=== PATIENT | female | born 2000 | race Caucasian/White ===

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

== ENCOUNTER → 2023-07-07 | Outpatient (CLI) | payer OTHER, SELFPAY | END | disposition home or self-care (01) | LOC: LABSPEC 12:10 | PROVIDERS: PCP Pediatrics; Referring Provider Physician Assistant Surgical; Visit Provider Physician Assistant Surgical | DX: J02.9 Acute pharyngitis, unspecified (principal) | CPT/HCPCS: 87070 ==

== ENCOUNTER → 2023-08-19 | Outpatient (CLI) | payer OTHER, SELFPAY ==
[2023-08-19 15:07] LABS: Hematocrit 43.3 % (37-47); Hemoglobin 13.5 g/dL (12.0-15.0); Mean Corp Hgb Conc 31.2 g/dL (32-36); Mean Corpuscular Volume 89.8 fL (81-99); Mean Platelet Vol. 10.1 fl (6.2-12.0); Platelet Count 342 K/mm3 (150-450); RBC Distribution Width CV 13.9 % (11.6-14.6); RBC Distribution Width SD 45.8 fl (35.1-43.9); Red Blood Count 4.82 M/mm3 (4.2-5.4); White Blood Count 12.9 K/mm3 (4.4-11.0)
[2023-08-19 17:02] LABS: ALB/GLOB Ratio 0.7 RATIO (0.9-2.4); AST(SGOT) 23 U/L (15-37); Alanine Aminotransfer ALT/SGPT 35 U/L (13-56); Albumin, Serum 3.1 g/dL (3.2-5.0); Alkaline Phosphatase 109 U/L (45-117); Anion Gap 8 (5-15); BUN 9 mg/dL (7-18); BUN/Creat Ratio 13.3 RATIO (10-20); Calcium,Total 9.2 mg/dL (8.5-10.1); Chloride 102 mmol/L (98-107); Cholesterol 123 mg/dL (200); Creatinine, Serum 0.68 mg/dL (0.55-1.02); EST Glomerular Filtration Rate 116 mL/min (>60); Est Glom Filt Rate - Afr Amer 140 mL/min (>60); Ferritin 54 ng/mL (8-252); Globulin 4.6 g/dL (2.2-4.2); Glucose 76 mg/dL (74-106); High Density Lipoprotein 49 mg/dL; Iron 83 ug/dL (50-170); Iron Binding Capacity,Total 391 ug/dL (250-450); PERCENT IRON SATURATION 21.2 % (15.0-55.0); Potassium 3.9 mmol/L (3.5-5.1); Protein, Total 7.7 g/dL (6.4-8.2); Sodium Level 136 mmol/L (136-145); Thyroid Stim Hormone (TSH) 1.85 uIU/mL (0.358-3.74); Triglycerides 53 mg/dL; Very Low Density Lipoprotein 11 mg/dL (5-40)
[2023-08-19 17:32] LABS: Insulin 10.4 mU/L (2.6-37.6); Vitamin B12 542 pg/mL (211-911); Vitamin D,25 Hydroxy 24.4 ng/mL
[2023-08-19 17:54] LABS: Hemoglobin A1c 5.4 % (3.8-5.6)
== END | disposition home or self-care (01) ==
PROVIDERS: Referring Provider Physician Assistant; Visit Provider Physician Assistant
DX: E66.9 Obesity, unspecified (principal); F33.1 Major depressive disorder, recurrent, moderate; E28.2 Polycystic ovarian syndrome; F41.1 Generalized anxiety disorder
CPT/HCPCS: 36415; 80053; 80061; 82306; 82607; 82728; 82746; 83036; 83525; 83540; 83550; 84443; 85027

== ENCOUNTER 2025-02-20 13:14 | Emergency (ER) | payer BC, SELFPAY ==
[2025-02-20 13:15] VITALS: BP 141/85; PULSE 109; RESP 18; TEMP 36.6; O2SAT 100; BMI 51.5
--- NOTE | 2025-02-20 13:38 | EDS_ITS ---
HPI History of Present Illness Chief Complaint: General Illness Detail of Chief Complaint: Fever, chills, myalgia Informant: patient Narrative Narrative: Patient presents with complaint of fever and bodyaches and chills that started 5 days ago. She was seen at urgent care today where she was tested for COVID and influenza and was negative. She denies significant sore throat. She describes some swelling to her face. She denies rashes. Patient was immunized up until age 13. She denies recent travel or surgery. She tells me a few nights ago she had urinary frequency but that seems to have resolved. She denies dysuria or hematuria. [facility] Medical History Acute pharyngitis, unspecified Left ankle sprain Home Medications ?Medication ?Instructions ?Recorded ?Last Taken ?Type acetaminophen 325 mg capsule 325 mg PO ONCE PRN fever or pain 08/10/22 Unknown History (Tylenol) benzonatate 200 mg capsule 200 mg PO TID PRN cough #20 caps 12/26/24 Unknown Rx methylprednisolone 4 mg tablets in See Rx Instructions PO PER PKG DIR 12/26/24 Unknown Rx a dose pack (Medrol (Daquan)) #21 tabs Allergy/AdvReac Type Severity Reaction Status Date / Time amoxicillin trihydrate (From Allergy Swelling Verified 02/20/25 13:18 Augmentin) nickel Allergy Rash Verified 02/20/25 13:18 potassium clavulanate (From Allergy Swelling Verified 02/20/25 13:18 Augmentin) Social History Smoking Status: Never smoker alcohol intake: never substance use type: does not use caffeine: Yes what type of physical activity do you participate in: none seatbelt use: always ROS ROS ED Review of Systems ROS Unobtainable: other Constitutional Constitutional ED: Reports chills, fever(s) and lethargy; Denies sweats or weight loss Eyes Eyes: Denies blurry vision, change in vision or diplopia ENT ENT ED: Denies rhinorrhea or sore throat Cardiovascular Cardiovascular: Denies chest pain, orthopnea or racing heartbeat Respiratory/Chest Respiratory/Chest: Reports dyspnea and dyspnea on exertion; Denies cough, orthopnea or sputum Gastrointestinal Gastrointestinal: Denies abdominal pain, diarrhea, nausea or vomiting Genitourinary Genitourinary ED: Denies dysuria, hematuria or urinary frequency Musculoskeletal Musculoskeletal: Reports myalgias; Denies arthralgias, back pain or neck pain Integumentary Denies abscess, Abrasions or rash Neurologic Neurologic: Denies headache(s) or weakness Psychiatric Psychiatric: Denies anxiety, depression or suicidal thoughts Endocrine Endocrinology: Denies polydipsia, polyphagia or polyuria Hematologic/Lymphatic Hematologic/Lymphatic: Denies easy bleeding, easy bruising or lymphadenopathy Allergic/Immunologic Allergic/Immunologic ED: Denies mouth swelling, tongue swelling or urticaria EXAM Physical Exam Const Vital Signs: 02/20/25 13:15 02/20/25 14:43 Temperature 98 F Temperature Source Temporal Pulse Rate 109 H Respiratory Rate 18 Respiratory Effort Normal Respiratory Pattern Normal Blood Pressure 141/85 H Blood Pressure Mean 103 Pulse Ox 100 Oxygen Delivery Method Room Air Positive well nourished and well developed General Appearance ED: well developed and NAD HEENT Reports TM's clear and moist mucous membranes normocephalic and atraumatic; Negative for trauma or tenderness Tympanic Membrane ED: Yes TM's clear Eyes PERRL and EOMs intact bilaterally General Eye ED: Negative for pale conjunctiva or scleral icterus Neck no lymphadenopathy, supple and no JVD Neck Narrative: Positive posterior cervical lymphadenopathy. She has some fullness over both parotid glands. Subtle faint flushing of the face noted. Minimal pharyngeal erythema. No exudates. Uvula midline without trismus. General: Negative for tenderness Chest Wall inspection of chest normal and palpation of chest normal Chest: Negative for tenderness Resp normal respiratory effort and clear to auscultation bilaterally Effort and Inspection: Negative for respiratory distress or pain with movement Auscultation: Negative for rhonchi, wheezes or diminished lung sounds Cardio regular rate, regular rhythm, S1 normal heart sound, S2 normal heart sound and no murmurs Peripheral Pulses: pulses 2+ throughout GI normal to inspection, nondistended, normoactive bowel sounds, soft to palpation, non-tender, non-distended and no masses Back/Spine no CVA tenderness and no thoracic nor lumbar tenderness Extremity normal to inspection General Extremety ED: Negative for edema General Extremity: Negative for edema Neuro oriented x3, CN's II-XII intact bilaterally, no sensory deficits noted and gait normal Sensorium / Orientation: awake, alert, oriented to person, oriented to place and oriented to time Motor Exam: strength 5/5 throughout and strength abnormal Psych mental status grossly normal Skin no rashes or lesions noted and no wounds MDM MDM MDM Narrative Medical decision making narrative: Patient presents with multiple complaints of fever and chills and bodyaches. Nontoxic-appearing on arrival. She does have some adenopathy posterior cervical. CBC with differential obtained showed a white count of 3.2 with hemoglobin 14 and platelet count of 151. Chemistries unremarkable. Urinalysis was negative for infection. LFTs were unremarkable. Did do a monotest which was negative however I did express to her that this can sometimes take up to 2 weeks to turn positive if we were entertaining that possibility. Patient also had a rapid strep screen that was negative. Coupled with testing today that was negative for COVID and influenza I did not feel this need to be repeated. Patient I suspect likely has a viral syndrome. I did treat her with Toradol and she had good symptomatic relief with that. Recommend she push fluids and use ibuprofen for discomfort. Discharged home in stable condition. Will refer to primary care physician on-call for no doc. Lab Data Attestation: I reviewed the patient's lab results. Labs: Laboratory Results - last 24 hr 02/20/25 02/20/25 13:55 14:15 WBC 3.2 L RBC 5.01 Hgb 14.2 Hct 43.8 MCV 87.4 MCH 28.3 MCHC 32.4 RDW Std Deviation 42.9 RDW Coeff of Hernando 13.4 Plt Count 151 MPV 10.0 Immature Gran % (Auto) 0.600 Neut % (Auto) 67.2 Lymph % (Auto) 22.8 [place] % (Auto) 9.1 Eos % (Auto) 0.0 Baso % (Auto) 0.3 Absolute Neuts (auto) 2.2 Absolute Lymphs (auto) 0.73 L Nucleated RBC % 0 Reactive Lymphocytes 1+ Sodium 134 Potassium 4.1 Chloride 100 Carbon Dioxide 25.3 Anion Gap 9 BUN 8 Creatinine 0.74 Estim Creat Clear Calc 168.61 Est GFR (MDRD) Non-Af 116 BUN/Creatinine Ratio 11.0 Glucose 103 H Calcium 8.3 Total Bilirubin 0.39 AST 35 H ALT 30 Alkaline Phosphatase 98 Total Protein 7.0 Albumin 3.6 Globulin 3.4 Albumin/Globulin Ratio 1.0 Urine Color Yellow Urine Clarity Sl. Cloudy Urine pH 6.0 Ur Specific Karval 1.015 Urine Protein TNP Urine Glucose (UA) Normal Urine Ketones Negative Urine Occult Blood 10 H Urine Nitrite Negative Urine Bilirubin Negative Urine Urobilinogen Normal Ur Leukocyte Esterase 500 H Urine RBC 0-5 SEEN Urine WBC 0-5 SEEN Ur Squamous Epith Cells 5-10 SEEN Urine Bacteria 1+ Urine Mucus 0 SEEN U Random Total Protein 17.9 H Monoscreen Negative Discharge Plan Triage Chief Complaint: General Illness ED Provider: Mitch Do Dx/Rx/DC Orders Clinical Impression: Acute viral syndrome Instructions: ED Viral Syndrome (Adult) Prescriptions: No Action acetaminophen [Tylenol] 325 mg capsule 325 mg PO ONCE PRN (Reason: fever or pain) benzonatate 200 mg capsule 200 mg PO TID PRN (Reason: cough) Qty: 20 0RF methylprednisolone [Medrol (Daquan)] 4 mg tablets,dose pack See Rx Instructions PO PER PKG DIR Qty: 21 0RF Rx Instructions: PO PER PKG DIR Primary Care Provider: Care Physician,No Primary Referrals: Ted Lerma MD [Med Staff - Active Staff] - 3-5 Days Care Physician,No Primary [Primary Care Provider] - Print Language: [place]er Disposition Disposition: Home, Self Care
[2025-02-20 14:06] LABS: Absolute Lymphocyte Count 0.73 X10^3/uL (0.83-4.51); Absolute Neutrophil Count 2.2 X10^3/uL (2.0-7.7); Basophil# 0.01 X10^3/uL; Basophil% 0.3 % (0-1); Hematocrit 43.8 % (37-47); Hemoglobin 14.2 g/dL (12.0-15.0); Lymphocyte # 0.73 X10^3/ul (0.83-4.51); Lymphocyte % 22.8 % (19-41); Mean Corp Hgb Conc 32.4 g/dL (32-36); Mean Corpuscular Hgb 28.3 pg (27.0-32.0); Mean Corpuscular Volume 87.4 fL (81-99); Monocyte# 0.29 X10^3/uL; Monocyte% 9.1 % (0-10); NRBC Flagged by Analyzer 0 % (0-5); Neutrophil # 2.15 X10^3/uL (2.7-7.7); Neutrophil % 67.2 % (47-70); POSITIVE MORPHOLOGY YES; Platelet Count 151 K/mm3 (150-450); RBC Distribution Width CV 13.4 % (11.6-14.6); RBC Distribution Width SD 42.9 fl (35.1-43.9); Red Blood Count 5.01 M/mm3 (4.2-5.4); White Blood Count 3.2 K/mm3 (4.4-11.0)
[2025-02-20 14:11] LABS: Differential Indicated SCAN CRITERIA MET
[2025-02-20] MEDS: Ketorolac 30 MG/ML Syringe IV (14:13)
[2025-02-20] MEDS: 0.9% Normal Saline (1000mL) 1,000 ML 1000 ML IV (14:13)
[2025-02-20 14:19] LABS: Internal QC Validated? YES +Cl - CLEAR BKGD; Monotest Negative (Negative); Record Kit Lot#, Mono 13241430
[2025-02-20 14:24] LABS: AST(SGOT) 35 U/L (<=31); Alanine Aminotransfer ALT/SGPT 30 U/L (<=34); Albumin, Serum 3.6 g/dL (3.5-5.0); Alkaline Phosphatase 98 U/L (35-104); Anion Gap 9 (5-15); BUN 8 mg/dL (4-19); Calcium,Total 8.3 mg/dL (7.6-11.0); Carbon Dioxide 25.3 mmol/L (21.0-32.0); Chloride 100 mmol/L (98-108); Creatinine, Serum 0.74 mg/dL (0.70-1.20); EST Glomerular Filtration Rate 116 (>60); Estimated Creatinine Clearance 168.61 ml/min (50-250); Globulin 3.4 g/dL (2.2-4.2); Glucose 103 mg/dL (70-99); Potassium 4.1 mmol/L (3.3-5.1); Sodium Level 134 mmol/L (133-145); Total Bilirubin 0.39 mg/dL (0.00-1.30)
[2025-02-20 14:24] LABS: Mucous, Urine 0 SEEN /hpf (<or=2+)
[2025-02-20 14:29] LABS: Color, Urine Yellow (Yellow); Glucose, Dipstick Normal (Normal); Ketone-Dipstick Negative (Negative); Leukocyte Esterase-Dipstick 500 /ul (Negative); Nitrite-Dipstick Negative (Negative); Occult Blood-Urine 10 /ul (Negative); Specific Gravity, Urine 1.015 (1.002-1.030); Urine Bilirubin Dipstick Negative (Negative); Urine Clarity Sl. Cloudy (Clear); Urine Urobilinogen Normal (Normal)
[2025-02-20 14:45] LABS: Bacteria 1+ /hpf (None Seen); Red Blood Cells-Urine 0-5 SEEN /hpf (0-5); Squamous Epithelial Cells - UA 5-10 SEEN /hpf (5-10); White Blood Cells 0-5 SEEN /hpf (0-5)
[2025-02-20 14:58] LABS: Reactive Lymphocyte 1+
[2025-02-20 15:00] LABS: Protein, Urine (Random) 17.9 mg/dL (0.0-12.0)
[2025-02-20 15:57] VITALS: BP 128/76; PULSE 90; RESP 16; O2SAT 99
== END 2025-02-20 15:58 | disposition home or self-care (01) ==
PROVIDERS: Emergency Provider Emergency Medicine; Visit Provider Emergency Medicine
DX: B34.9 Viral infection, unspecified (principal); R59.0 Localized enlarged lymph nodes; R06.00 Dyspnea, unspecified
CPT/HCPCS: 80053; 81001; 84156; 85025; 86308; 87040; 87651; 96361; 96374; 99282; A4216